=== PATIENT | male | born 1940 | race Caucasian/White ===

== ENCOUNTER 2022-01-11 02:44 | Emergency (ER) | payer MEDICARE, BC ==
[~2022-01-11] VITALS: Ht 167.6 cm; Wt 81.0 kg
[~2022-01-11 02:44] MED LIST: AMLO2.5T2 PO; CHOL2000 PO; FINA5TAB11 PO; GEMF600T PO; HYDR-4383 PO; LISI10TA27 PO; NITR0.4T51 SL; OMEP20TA43 PO; SIMV-342 PO; SOTA80TA PO; TEMA15CA5 PO; TRIA1CAP88 PO
[2022-01-11] MEDS ORDERED: acetaminophen 325mg tablet PO ONE (03:05)
[2022-01-11 04:02] LABS: CLARITY,URINE SLIGHTLY CLOUDY (Clear); COLOR,URINE YELLOW (Yellow); GLUCOSE, URINE NEGATIVE (Neg); KETONES,URINE NEGATIVE (Neg); LEUKOCYTE ESTERASE ,URINE NEGATIVE (Neg); NITRITES, URINE NEGATIVE (Neg); OCCULT BLOOD,URINE NEGATIVE (Neg); PH,URINE 7.5 (4.8-8.0); PROTEIN,URINE NEGATIVE (Neg); UROBILINOGEN,URINE 0.2 E.U/dL (0.2-1.0)
[2022-01-11 04:03] LABS: BASOPHILS # (AUTO) 0.1 X10'3 (0-0.2); BASOPHILS % (AUTO) 1.6 % (0-1); EOSINOPHILS % (AUTO) 0.1 % (0-6); HEMATOCRIT 39.8 % (42.0-52.0); HEMOGLOBIN 13.1 g/dl (14.0-17.9); LYMPHOCYTES # (AUTO) 0.5 X10'3 (1.1-4.8); MEAN CORPUSCULAR VOLUME 87.8 FL (78-98); MEAN PLATELET VOLUME 8.4 FL (7.4-10.4); MONOCYTES # (AUTO) 0.5 X10'3 (0-0.9); MONOCYTES % (AUTO) 8.2 % (2-12); NEUTROPHILS # (AUTO) 4.7 X10'3 (1.8-7.7); NEUTROPHILS % (AUTO) 81.1 % (42-75); PLATELET COUNT 172 X10'3 (140-440); RED BLOOD COUNT 4.53 X10'6 (4.70-6.10); RED CELL DISTRIBUTION WIDTH 15.1 % (11.5-14.5); WHITE BLOOD COUNT 5.8 X10'3 (4.5-11.0)
[2022-01-11 04:04] LABS: UA COLLECTION TYPE URINAL
[2022-01-11 04:10] LABS: BACTERIA,URINE NONE SEEN /HPF (Neg); RBC,URINE 0-2 /HPF (0-2); WBC,URINE NONE SEEN /HPF (0-4)
[2022-01-11 04:11] LABS: MUCUS STRANDS NONE SEEN /LPF (Neg); SQUAMOUS EPITHELIAL CELL,UR FEW /LPF (FEW)
[2022-01-11 04:20] LABS: ALANINE AMINOTRANSFERASE 24 U/L (12-78); ALBUMIN 3.7 G/DL (3.4-5.0); ALBUMIN/GLOBULIN RATIO 1.2 (1.1-1.5); ALKALINE PHOSPHATASE 116 IU/L (46-116); ANION GAP 12 (8-16); ASPARTATE AMINO TRANSFERASE 26 U/L (10-37); BILIRUBIN,TOTAL 0.5 MG/DL (0.1-1.0); BLOOD UREA NITROGEN 11 MG/DL (7-18); BUN/CREATININE RATIO 13.4 (5.4-32.0); CALCIUM 8.7 MG/DL (8.5-10.1); CHLORIDE 100 MMOL/L (99-107); CREATININE 0.82 MG/DL (0.60-1.10); GLUCOSE 101 MG/DL (70-104); POTASSIUM 3.7 MMOL/L (3.5-5.1); SODIUM 138 MMOL/L (135-145); TOTAL CARBON DIOXIDE 26.4 MMOL/L (24-32); TOTAL PROTEIN 6.9 G/DL (6.4-8.2); eGFR 90 ML/MIN
[2022-01-11] MEDS ORDERED: azithromycin 250mg tablet PO ONE (04:55)
[2022-01-11] MEDS ORDERED: levoFLOXACIN 250mg tablet PO ONE ×2 (04:55→05:45)
[2022-01-11] MEDS ORDERED: LEVO-65 PO (04:55)
[2022-01-11 06:09] VITALS: BP 134/83
== END 2022-01-11 06:12 | disposition home or self-care (01) ==
LOC: ER 02:44
DX: R05.9 Cough, unspecified (principal); Z20.822 Contact with and (suspected) exposure to COVID-19; R50.9 Fever, unspecified
CPT/HCPCS: 36415; 71045; 80053; 81001; 83605; 83880; 84145; 85025; 87040; 87502; 87503; 87635; 99284; C9803

== ENCOUNTER 2022-06-05 07:11 | Day surgery (SDC) | payer MEDICARE, BC ==
[2022-05-29 15:29] LABS: CLARITY,URINE CLEAR (Clear); COLOR,URINE YELLOW (Yellow); GLUCOSE, URINE NEGATIVE (Neg); KETONES,URINE NEGATIVE (Neg); LEUKOCYTE ESTERASE ,URINE NEGATIVE (Neg); NITRITES, URINE NEGATIVE (Neg); OCCULT BLOOD,URINE NEGATIVE (Neg); PH,URINE 6.5 (4.8-8.0); PROTEIN,URINE NEGATIVE (Neg); UA COLLECTION TYPE CLN CATCH MIDSTREAM; UROBILINOGEN,URINE 0.2 E.U/dL (0.2-1.0)
[2022-05-29 15:47] LABS: BASOPHILS % (AUTO) 0.4 % (0-1); EOSINOPHILS # (AUTO) 0.1 X10'3 (0-0.9); EOSINOPHILS % (AUTO) 1.8 % (0-6); LYMPHOCYTES # (AUTO) 1.5 X10'3 (1.1-4.8); LYMPHOCYTES % (AUTO) 24.8 % (21-51); MEAN CORPUSCULAR HEMOGLOBIN 29.1 PG (27.0-31.0); MEAN CORPUSCULAR HGB CONC 33.2 g/dL (33.0-36.5); MEAN CORPUSCULAR VOLUME 87.8 FL (78-98); MONOCYTES # (AUTO) 0.6 X10'3 (0-0.9); MONOCYTES % (AUTO) 10.5 % (2-12); NEUTROPHILS # (AUTO) 3.8 X10'3 (1.8-7.7); NEUTROPHILS % (AUTO) 62.5 % (42-75); PRE OP HEMATOCRIT 41.5 % (42.0-52.0); PRE OP HEMOGLOBIN 13.8 g/dL (14.0-17.9); PRE OP PLATELET COUNT 270 X10'3 (140-440); RED BLOOD COUNT 4.73 X10'6 (4.70-6.10); RED CELL DISTRIBUTION WIDTH 14.6 % (11.5-14.5)
[2022-05-29 16:02] LABS: ALBUMIN 3.8 G/DL (3.4-5.0); ALKALINE PHOSPHATASE 187 IU/L (46-116); BLOOD UREA NITROGEN 12 MG/DL (7-18); BUN/CREATININE RATIO 16.9 (10.0-20.0); CALCIUM 8.8 MG/DL (8.5-10.1); CHLORIDE 100 MMOL/L (99-107); CREATININE 0.71 MG/DL (0.60-1.10); PRE OP ALT 36 U/L (30-65); PRE OP ANION GAP 8 (8-16); PRE OP AST 28 U/L (10-37); PRE OP BILIRUB, TOTAL 0.6 MG/DL (0.0-1.0); PRE OP GLUCOSE 98 MG/DL (70-104); PRE OP POTASSIUM 3.6 MMOL/L (3.4-5.1); PRE OP SODIUM 137 MMOL/L (135-145); TOTAL CARBON DIOXIDE 29.1 MMOL/L (24-32); TOTAL PROTEIN 7.5 G/DL (6.4-8.2); eGFR > 90 ML/MIN
[~2022-06-05] VITALS: Ht 177.8 cm; Wt 79.7 kg
[2022-06-05] VITALS (15 sets, daily range): BP systolic 154–182; BP diastolic 89–105
[~2022-06-05 07:11] MED LIST changes: -AMLO2.5T2 PO; +APIX5TAB3 PO; -CHOL2000 PO; +DOCUMENT DATE & TIME OF BETA-BLOCKER PO ONE; -FINA5TAB11 PO; -GEMF600T PO; +GEMF600T89 PO; -HYDR-4383 PO; -LISI10TA27 PO; +LISI1TAB51 PO; +OMEP20CA16 PO; -OMEP20TA43 PO; -SIMV-342 PO; +SIMV-45 PO; -SOTA80TA PO; +SOTA80TA73 PO; -TEMA15CA5 PO; -TRIA1CAP88 PO; +cefazolin 2gm/D5W 100mL 100 ML IV ONE; +famotidine 20mg tablet PO ONE; +ringers solution, lacted 1,000 ML IV SCH
[2022-06-05] MEDS ORDERED: BUPIVAcaine/PF 2.5 mg/ml (0.25%) 30ml vial ONE (09:49)
[2022-06-05] MEDS ORDERED: sevoflurane 250ml liquid IH ONE (09:52)
[2022-06-05] MEDS ORDERED: rocuronium 10mg/ml inj IV ONE (09:56)
[2022-06-05] MEDS ORDERED: propofol inj 20 ML IV ONE (09:56)
[2022-06-05] MEDS ORDERED: fentaNYL/PF 50MCG/1 ML 2ML syringe ONE (09:56)
[2022-06-05] MEDS ORDERED: labetalol 20mg/4ml (5mg/ml) syringe IV PRN (10:40)
[2022-06-05] MEDS ORDERED: meperidine/PF 25mg/ml syringe IV PRN ×3 (10:40)
[2022-06-05] MEDS ORDERED: ringers solution, lacted 1,000 ML IV SCH (10:40)
[2022-06-05] MEDS ORDERED: ondansetron/PF 4mg/2ml inj IV PRN (10:40)
[2022-06-05] MEDS ORDERED: morphine 4 MG/ML inj SYRINge IV PRN (10:40)
[2022-06-05] MEDS ORDERED: proCHLORperazine 10 MG/2 ml inj IV PRN (10:40)
[2022-06-05] MEDS ORDERED: morphine 2 MG/ML inj. syringe IV PRN (10:40)
[2022-06-05] MEDS ORDERED: acetaminophen 1,000mg/100ml IV 100 ML IV ONE (11:13)
[2022-06-05] MEDS ORDERED: sugammadex 200mg/2ml injection IV ONE (11:36)
--- NOTE | 2022-06-05 11:47 | NUR ---
Received from OR via [facility], accompanied by Anesthesiologist DR BUSTILLOS and report given by Anesthesiologist AND MEDICAL ADMINISTRATIVE.PT DROWSY, DENIES PAIN, ABDOMEN W/3 LAP SITES W/DERMABOND CDI. Addendum: 06/05/22 at 1202 by Sangeeta Macario RN Amended: Links added.
[2022-06-05] MEDS ORDERED: traMADol 50MG tablet PO ONE (13:10)
--- NOTE | 2022-06-05 13:35 | NUR ---
PT UP AND ABLE TO AMBULATE SAFELY, VOIDED X 1, BLADDER SCANNED FOR 201 ML RESIDUAL, PT STATES HE ONLY VOIDS TINY AMOUNTS AT A TIME. PT UP AGAIN AT 14:40 VOIDED, STATES LARGER AMOUNT THIS TIME, RE-BLADDER SCANNED FOR 65 ML RESIDUAL. INSTRUCTED PT AND HIS HE NEEDS TO GET UP AND ATTEMPT TO VOID EVERY HOUR AND IF UNABLE TO VOID AFTER 6 HOURS HE WILL NEED TO COME BACK TO THE ED AND HAVE A NOGUEIRA CATHETER PLACED. BOTH VERBALIZED UNDERSTANDING. Addendum: 06/05/22 at 1449 by Sangeeta Macario RN Amended: Links added.
--- NOTE | 2022-06-05 15:07 | NUR ---
PT REMAINS STABLE W/AMBULATION, STATES PAIN IS TOLERABLE. D/C INSTRUCTIONS GIVEN AND GONE OVER W/PT WHO VERBALIZED UNDERSTANDING. PT D/CD TO HOME VIA W/C TO PRIVATE VEHICLE W/O INCIDENT. Addendum: 06/05/22 at 1539 by Sangeeta Macario RN Amended: Links added.
== END 2022-06-05 15:07 | disposition home or self-care (01) ==
LOC: PAS 07:11
PROVIDERS: ATTEND Surgery
DX: K40.91 Unilateral inguinal hernia, without obstruction or gangrene, recurrent (principal); K40.90 Unilateral inguinal hernia, without obstruction or gangrene, not specified as recurrent; I48.91 Unspecified atrial fibrillation; I25.10 Atherosclerotic heart disease of native coronary artery without angina pectoris; E11.9 Type 2 diabetes mellitus without complications; I25.2 Old myocardial infarction; N40.0 Benign prostatic hyperplasia without lower urinary tract symptoms; K21.9 Gastro-esophageal reflux disease without esophagitis; Z79.01 Long term (current) use of anticoagulants; Z86.73 Personal history of transient ischemic attack (TIA), and cerebral infarction without residual deficits; Z95.1 Presence of aortocoronary bypass graft; Z98.890 Other specified postprocedural states; Z79.899 Other long term (current) drug therapy; Z87.891 Personal history of nicotine dependence; Z82.49 Family history of ischemic heart disease and other diseases of the circulatory system
CPT/HCPCS: 36415; 49650; 49651; 80053; 81003; 82948; 85025; C1758; C1781; J0131; J0690; J2270; J2704; J3010; J3490; J7030; J7120; Z7506; Z7508; Z7512; A4215; A4618

== ENCOUNTER → 2023-03-10 | Outpatient (CLI) | payer MEDICARE, BC ==
[~2023-03-10] MED LIST changes: -DOCUMENT DATE & TIME OF BETA-BLOCKER PO ONE; -cefazolin 2gm/D5W 100mL 100 ML IV ONE; -famotidine 20mg tablet PO ONE; -ringers solution, lacted 1,000 ML IV SCH
== END | disposition home or self-care (01) ==
LOC: RAD 11:04
PROVIDERS: ATTEND Nurse Practitioner Family
DX: J34.89 Other specified disorders of nose and nasal sinuses (principal); J32.9 Chronic sinusitis, unspecified; G93.89 Other specified disorders of brain; M79.89 Other specified soft tissue disorders
CPT/HCPCS: 70486